=== PATIENT | male | born 1950 | race Asian ===

== ENCOUNTER 2019-05-28 17:16 | Emergency (ER) | payer MEDICARE, OTHER ==
[~2019-05-28] VITALS: Ht 167.6 cm; Wt 64.4 kg
[2019-05-28 17:25] VITALS: BP 116/77
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
[2019-05-28] MEDS ORDERED: Lidocaine HCl 2% Jelly 6ml Tube TOPIC ONE (17:45)
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
--- NOTE | 2019-05-28 19:09 | NUR ---
HAND-OFF: Report given to YRIS Barton.
[2019-05-28] MEDS ORDERED: CLINDAMYCIN HC300 MG ORAL (20:33)
[2019-05-28] MEDS ORDERED: NAPROXEN500 M2 ORAL (20:33)
[2019-05-28] MEDS ORDERED: Clindamycin 300mg/ml vial inj IM ONE (20:45)
--- NOTE | 2019-05-28 20:57 | NUR ---
ED Nurse Note: pt cleared to be d/c per ER provider, pt discharge and aftercare instruction w/ prescription provided, pt education done via discussion and handout, pt advised to follow up with pcp or return to ed if changes in condition, vss, ambulatory w/ steady gait, left w/ all belongings, pt wound care done by treatment technician.
[2019-05-28 20:58] VITALS: BP 112/74
--- NOTE | 2019-05-29 11:01 | Diagnostic Imaging Report ---
Indication: Traumatic pain Technique: 2 views of the left tibia and fibula Comparison: none Findings: There is a soft tissue defect in the medial soft tissues of the mid leg. No underlying bony defect. No acute fractures or dislocations. No radiopaque foreign body demonstrated. Impression: Evidence of soft tissue injury medially. No acute bony trauma
== END 2019-05-28 20:58 | disposition home or self-care (01) ==
LOC: EMR 18:48
DX: S81.811A Laceration without foreign body, right lower leg, initial encounter (principal); V19.9XXA Pedal cyclist (driver) (passenger) injured in unspecified traffic accident, initial encounter; Y92.9 Unspecified place or not applicable; Z88.0 Allergy status to penicillin; Z88.2 Allergy status to sulfonamides; E11.9 Type 2 diabetes mellitus without complications
CPT/HCPCS: 12001; 73590; 99283; S0077